=== PATIENT | male | born 1960 | race Caucasian/White ===

== ENCOUNTER 2022-07-31 08:21 | Emergency (ER) | payer OTHER, BC ==
[2022-07-31] MEDS ORDERED: Iopamidol-370 76% 500 ML 1 ML ONE (08:33)
[2022-07-31 08:44] LABS: #Eosinphils 0.2 thou/uL (0.0-0.7); #Lymphocytes 2.2 thou/uL (1.20-3.40); #Monocytes 0.8 thou/uL (0.11-0.59); #Neutrophils 9.2 thou/uL (1.40-6.50); %Basophils 0.1 % (0.0-1.0); %Eosinophils 1.5 % (0.0-10.0); %Lymphocytes 17.5 % (21.0-51.0); %Monocytes 6.6 % (0.0-10.0); %Neutrophils 74.2 % (42.0-75.0); Hemoglobin 12.9 g/dL (14.0-18.0); Mean Corpuscular HGB CONC 33.4 g/dL (32.0-36.0); Mean Corpuscular Volume 92.7 fl (78.0-98.0); Mean Platelet Volume 6.3 fL (7.4-10.4); Platelet Count 357 10x3/uL (130-400); Red Blood Cell (RBC) Count 4.18 mill/uL (4.70-6.10); White Blood Cell (WBC) Count 12.4 10x3/uL (4.8-10.8)
[2022-07-31] MEDS ORDERED: Boostrix 0.5 ML (Tdap) VIAL (>/=7 yrs of age) ONE (09:02)
[2022-07-31] MEDS ORDERED: CEFAZOLIN 2 GM VIAL ONE (09:02)
[2022-07-31 09:15] LABS: ALT (SGPT) 24 U/L (8-55); AST (SGOT) 31 U/L (5-34); Albumin 4.6 g/dL (3.4-4.8); Alkaline Phosphatase 73 U/L (40-110); Anion Gap 13 mmol/L (10-20); BUN (Urea Nitrogen) 18 mg/dL (8.4-25.7); Bilirubin, Total 0.7 mg/dL (0.2-1.2); Calc. Creatinine Clearance 0 mL/min (70-130); Calcium 9.2 mg/dL (7.8-10.44); Carbon Dioxide 23 mmol/L (23-31); Chloride 107 mmol/L (98-107); Estimated GFR 98; Globulin 3.5 g/dL (2.4-3.5); Glucose 215 mg/dL (80-115); Lipase 17 U/L (8-78); Potassium 3.9 mmol/L (3.5-5.1); Protein, Total 8.1 g/dL (5.8-8.1); Sodium 139 mmol/L (136-145)
[2022-07-31 09:31] LABS: Bilirubin Negative (Negative); Blood, Urine Negative (Negative); Clarity Clear (Clear); Glucose, Urine (Dipstick) 200 mg/dL (Negative); Ketone, Urine Negative (Negative); Leukocyte Negative Leu/uL (Negative); Nitrite Negative (Negative); Protein, Urine (Dipstick) 10 mg/dL (Neg-Trace); Specific Gravity, Urine 1.024 (1.002-1.036); Urobilinogen Normal mg/dL (Less than 2)
[2022-07-31 09:35] LABS: INR-International Normal Ratio 0.9
[2022-07-31] MEDS ORDERED: Fluorescein Opthalmic Strip ONE (10:26)
[2022-07-31] MEDS ORDERED: Proparacaine 0.5% Opth 15 ML BOT ONE (10:26)
[2022-07-31] MEDS ORDERED: Lidocaine 1% PF 5 ML VIAL ONE (11:29)
== END 2022-07-31 15:23 | disposition short-term general hospital (02) ==
LOC: ERS 08:21
DX: S01.81XA Laceration without foreign body of other part of head, initial encounter (principal); D72.829 Elevated white blood cell count, unspecified; I10 Essential (primary) hypertension; V89.2XXA Person injured in unspecified motor-vehicle accident, traffic, initial encounter; Z23 Encounter for immunization
CPT/HCPCS: 12014; 70450; 70486; 71260; 72125; 74177; 80053; 81003; 83605; 83690; 84484; 85025; 85610; 85730; 90471; 90715; 93005; 96365; G0390; Q9967

== ENCOUNTER 2025-05-24 08:37 | Outpatient (CLI) | payer OTHER | END 2025-05-24 08:38 | disposition home or self-care (01) | LOC: ULT 08:37 | PROVIDERS: ATTEND Student in an Organized Health Care Education/Training Program | DX: B18.2 Chronic viral hepatitis C (principal) | CPT/HCPCS: 76705 ==